=== PATIENT | female | born 1990 | race Caucasian/White ===

== ENCOUNTER → 2019-11-20 | Outpatient (CLI) | payer OTHER ==
[2019-11-20 10:11] LABS: HCT 40.9 % (34.0-46.0); HGB 13.2 gm/dL (11.4-16.0); MCH 31.4 pg (25.0-35.0); MCHC 32.2 g/dL (31.0-37.0); MCV 97.6 fL (80.0-100.0); Mean Platelet Volume 8.3; Platelet Count 312 k/uL (150-450); RBC 4.19 m/uL (3.80-5.40); RDW 13.2 % (11.5-15.5)
[2019-11-20 16:15] LABS: ALT 25 U/L (8-44); AST 19 U/L (13-35); African American GFR (CKD) 140.8 (60.0-200.0); Alkaline Phosphatase 55 U/L (41-126); Calcium 9.4 mg/dL (8.7-10.3); Carbon Dioxide 24.8 mmol/L (21.6-31.8); Chloride 109 mmol/L (96-109); Chol/HDL Ratio 2.39; Cholesterol 117 mg/dL (0-200); Globulin 2.1 g/dL (1.6-3.3); Glucose 81 mg/dL (70-110); Non-African American GFR(CKD) 121.5 (60.0-200.0); Potassium 4.8 mmol/L (3.5-5.5); Sodium 143 mmol/L (135-145); Total Bilirubin 0.5 mg/dL (0.3-1.2); Total Protein 6.5 g/dL (6.2-8.2); Triglycerides <50.0 mg/dL (0.0-149.0)
== END | disposition home or self-care (01) ==
LOC: LABWHC1 09:22
PROVIDERS: ATTEND Physician Assistant
DX: E55.9 Vitamin D deficiency, unspecified (principal)
CPT/HCPCS: 36415; 80053; 80061; 82306; 84443; 84480; 85027